=== PATIENT | male | born 1990 | race Hispanic/Latino ===

== ENCOUNTER 2018-01-19 10:23 | Outpatient (CLI) | payer OTHER ==
--- NOTE | 2018-01-19 12:36 | RAD ---
FRONTAL VIEW CHEST AP AND OBLIQUE VIEWS RIGHT RIBS: Date: 01/19/18 HISTORY: Patient was playing soccer and was hit in ribs, with right-sided chest wall pain. FINDINGS: AP radiograph of chest, as well as AP and oblique views of right ribs obtained. The lungs are well ae rated. No evidence of active intrathoracic disease seen. No evidence of effusions, pneumonia, or pneu mothorax seen. AP and oblique views of the right ribs demonstrate no evidence of right rib fractures, subluxations, or bony lesions. IMPRESSION: Unremarkable frontal view of chest and AP and oblique views of right ribs. POS: [facility]
== END 2018-01-19 10:24 | disposition home or self-care (01) ==
LOC: MADLABBHPM 10:23
PROVIDERS: ATTEND Family Medicine
DX: R07.81 Pleurodynia (principal); R30.0 Dysuria
CPT/HCPCS: 87086